=== PATIENT | male | born 1940 | race Caucasian/White ===

== ENCOUNTER 2021-09-16 10:35 | Outpatient (CLI) | payer MEDICARE, SELFPAY ==
--- NOTE | 2021-09-16 10:50 | ECG_ITS ---
Measurements Intervals [place] Rate: 73 P: -42 LA: 205 QRS: -10 QRSD: 109 T: 46 QT: 391 QTc: 432 Interpretive Statements SINUS RHYTHM WITH OCCASIONAL SUPRAVENTRICULAR PREMATURE COMPLEXES VOLTAGE CRITERIA FOR LVH [MEETS CRITERIA IN ONE OF: R(aVL), S(V1), R(V5), R(V5/V6)+S(V1)] NONSPECIFIC T-WAVE ABNORMALITY ABNORMAL ECG NO PREVIOUS ECG AVAILABLE FOR COMPARISON Electronically Signed On 09-16-2021 12:52:51 CDT by Kingston Kuo M.D.
[2021-09-16 11:22] LABS: INR 1.2; Prothrombin Time 14.3 Seconds (11.1-14.7)
[2021-09-16 11:23] LABS: Partial Thromboplastin Time 31.9 SECONDS (22.3-36.8)
== END 2021-09-16 10:36 | disposition home or self-care (01) ==
LOC: ANHSURGERY 10:46
PROVIDERS: PCP Internal Medicine; Visit Provider Urology
DX: N20.0 Calculus of kidney (principal); E78.00 Pure hypercholesterolemia, unspecified; Z01.818 Encounter for other preprocedural examination; R94.31 Abnormal electrocardiogram [ECG] [EKG]
CPT/HCPCS: 36415; 85610; 85730; 87086; 87088; 93005

== ENCOUNTER 2021-09-23 01:04 | Day surgery (SDC) | payer MEDICARE, SELFPAY ==
--- NOTE | 2021-09-12 15:31 | PC.NURSE ---
Report to the Outpatient Waiting Room, entrance under the green pavilion located off [facility], at time _0830 on date __09/23/21 . OR Time:1030 AM . - You and your visitor will be asked a series of questions to screen for COVID 19 for your protection. - A mask is required within the hospital. Preoperative COVID Testing Requirements: No COVID Test needed if: (proof is required; if not received patient will have Rapid Test prior to entry) - Patient has received COVID Vaccine at least 14 days prior to procedure date or - Patient has positive COVID test result within last 90 days of surgery date. COVID Test needed if above criteria is not met If not COVID vaccinated a COVID test must be conducted within 72 hours of surgery and patient is asked to isolate self from time of testing until procedure. You will go to the [facility] for your COVID testing. The [facility] is located at the corner of [address] [facility]. You will only be called if COVID results are positive and your surgeon may reschedule your elective surgery date. Patients may have clear liquids (water, carbonated beverages, clear teas, apple juice) until 3 hours prior to surgery with a maximum of 20 ounces. - No food from midnight until time of surgery - Infants may have breast milk until 4 hours before surgery, infant formula 6 hours prior to surgery. - Children will be allowed to drink immediately following surgery. If applicable, please bring a bottle or sippy cup to assist with drinking. Juice, water, soda, and popsicles are readily available. For infants on formula, please bring formula the day of surgery. Pacifiers are allowed. Take the following medications with a SIP of water the morning of surgery: _NONE Medications to discontinue per physician ___ELIQUIS 7 DAYS PRE OP PER DR YEE Date to take last dose_09/15/21 Please no make-up, nail sa[place] arabian, hairspray, perfume, deodorant, or body powder the day of surgery. No jewelry (including any body piercings) or valuables the day of surgery, leave them at home. Please take a shower or bath the night before, or the morning of, surgery with an antibacterial soap. Wear comfortable, loose fitting clothing. Children are encouraged to wear pajamas. - Jewelry must be removed prior to entering the operating room. Rings and piercings that are not removed may be cut off. - The hospital will not accept responsibility for valuables. - Please leave all valuables, including medications, at home the day of surgery. If you are going home after surgery, a licensed pile driver operator must drive you home. - NO public transportation without another adult. - We recommend that an adult stay with you for 24 hours following discharge. - We also recommend that you do not drive, make important decision, drink alcoholic beverages, or take any drugs that were not prescribed by your health care provider for at least 24 hours after your discharge time. For Pediatric surgeries, we recommend two adults accompany the child home (only one inside the building at this time). One visitor will be allowed to accompany the patient into the hospital. Patients visitor will be instructed to remain with patient at all times or leave the building. We will allow the visitor to come back to the postoperative area when patient is ready. Follow any additional instructions given to you from your surgeon. Telephone instructions given to __PATIENT and asked if any additional questions and then verbalized understanding. Patient advised to call surgeon office or pre surgery nurse liaison [phone] if any additional questions.
[2021-09-12 15:42] VITALS: BMI 28.7
--- NOTE | 2021-09-22 14:08 | P.PNAN_ITS ---
Anes - Eval Pre Procedure Procedure: Operation Date: 09/23/21 10:30 Proposed Procedures p Right Extracorporeal Shock Wave Lithotripsy, - José Cassidy MD s Cystoscopy, Right Retrograde Pyelogram, Right Stent Placement - José Cassidy MD Date/Time: 09/22/21 14:08 Pre Op Diagnosis: gross hematuria, right renal stones Patient Data Age: 80 Gender: M Height: 1.8 m Weight: 93.45 kg Allergies Allergy/AdvReac Type Severity Reaction Status Date / Time amlodipine Allergy Unknown Upset Verified 09/12/21 15:15 stomach Home Medications Medication Instructions Recorded Confirmed Type apixaban [Eliquis] 5 mg PO DAILY 09/12/21 09/12/21 History atorvastatin 20 mg PO DAILY 09/12/21 09/12/21 History pantoprazole 40 mg PO DAILY 09/12/21 09/12/21 History Patient hx anesthesia problems: none Family hx anesthesia problems: none Results Review: All pre-operative results and documents have been reviewed as part of the pre-operative evaluation. [facility] Past Medical History Medical History (Updated 09/22/21 @ 14:08 by Lev Dale DO) Atrial fibrillation GERD (gastroesophageal reflux disease) Hyperlipidemia TIA (transient ischemic attack) x3, 2018 Family History Family History (Updated 01/29/18 @ 13:48 by DOCTOR UNKNOWN) Mother Family history of lymphoma Social History Social History Smoking status: Never smoker Alcohol intake: current Spiritual care concerns: No Exam Day of Procedure 09/22/21 14:08
[2021-09-23] VITALS (13 sets, daily range): BP systolic 153–211; BP diastolic 59–97; PULSE 44–71; RESP 12–16; TEMP 36.2–36.5; O2SAT 95–100
--- NOTE | ~2021-09-23 | XR_ITS ---
EXAMINATION: XR abdomen/kub 1V INDICATION: Urolithiasis TECHNIQUE: Supine views of the abdomen were obtained on 2 radiographs. COMPARISON: None FINDINGS: A 1.6 cm calcification projects in the right upper quadrant, likely in the right kidney. No definite additional urolithiasis is identified. There are phleboliths of the pelvis. Calcifications are also noted in the prostate. The bowel gas pattern is normal. The visualized lung bases are clear. IMPRESSION: 1. Right upper quadrant calcification, likely within the right kidney. Reviewed, dictated and finalized at location A.
--- NOTE | 2021-09-23 06:31 | WPDHPUPDATE1 ---
History and Physical Update Update Date/Time: 09/23/21 06:31 History and Physical has been reviewed, including an updated exam of the patient. There are NO changes in the patient's condition. Risks, benefits, and alternatives have been discussed and questions answered. Patient agrees to proceed with procedure.
--- NOTE | 2021-09-23 09:07 | P.PNAN_ITS ---
Anes - Initial Pre Proc Eval Procedure: Operation Date: 09/23/21 10:30 Proposed Procedures p Right Extracorporeal Shock Wave Lithotripsy, - José Cassidy MD s Cystoscopy, Right Retrograde Pyelogram, Right Stent Placement - José Cassidy MD Date/Time: 09/23/21 09:07 Surgeon: José Cassidy MD Pre Op Diagnosis: gross hematuria, right renal stones Patient Data Age: 80 Gender: M Height: 1.8 m Weight: 93.45 kg Allergies Allergy/AdvReac Type Severity Reaction Status Date / Time amlodipine Allergy Unknown Upset Verified 09/12/21 15:15 stomach Home Medications Medication Instructions Recorded Confirmed Type apixaban [Eliquis] 5 mg PO DAILY 09/12/21 09/12/21 History atorvastatin 20 mg PO DAILY 09/12/21 09/12/21 History pantoprazole 40 mg PO DAILY 09/12/21 09/12/21 History Patient hx anesthesia problems: none Family hx anesthesia problems: none Results Review: All pre-operative results and documents have been reviewed as part of the pre-operative evaluation. [facility] Past Medical History Medical History (Updated 09/22/21 @ 14:08 by Lev Dale DO) Atrial fibrillation GERD (gastroesophageal reflux disease) Hyperlipidemia TIA (transient ischemic attack) x3, 2018 Family History Family History (Updated 01/29/18 @ 13:48 by DOCTOR UNKNOWN) Mother Family history of lymphoma Social History Social History Smoking status: Never smoker Alcohol intake: current Living arrangements: with family Spiritual care concerns: No Anes - Eval Final PreProcedure Day of Procedure 09/23/21 09:07 Patient weight: overweight Heart: regular rate and rhythm Lungs: clear to auscultation and normal air movement Airway: Mallampati scale class II Neurological: alert and oriented Last oral intake: >/= 8 hours ASA classification: III Emergent: no Anesthetic plan: proceed Anesthesia type and monitoring: general LMA and standard monitoring Results Review: All pre-operative results and documents have been reviewed as part of the pre-operative evaluation. Informed Consent: The patient's anesthetic plan and its attendant risks and benefits were discussed with the patient/family/POA. Questions were solicited and answers provided to the satisfaction of the patient/family/POA.
[2021-09-23] MEDS: LACTATED RINGERS 1,000 ML 30 ML IV CONT ×2 (09:15→11:50)
[2021-09-23] MEDS: ceFAZolin 2 GM/D5W 50 ML 2 GM/50 ML BAG IVPB (10:00)
--- NOTE | 2021-09-23 10:32 | P.OP_ITS ---
Procedure Note - Detailed Date of Procedure 09/23/21 Pre-op Diagnosis Gross hematuria, right renal stones Post-op Diagnosis Same Procedure Performed Cystoscopy, right ureteral stent placement, right ESWL Surgeon José Cassidy MD Anesthesia General Description of Procedure The patient was brought to the operative suite where he was placed in the supine position on the Dornier lithotripter table. Flexible cystoscopy was undertaken with a 16F flexible cystoscopy. There were no urethral strictures. The pr ostatic urethra estimated length was 3.0cm. 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 The bladder mucosa was normal and there was a single, orthotopic ureteral orifice bilaterally. A 0.035 glidewire was advanced into the right renal pelvis under fluoroscopy. A 4.8F J-J ureteral stent was positioned with the proximal coil in the renal pelvis and the distal coil in the bladder. The patient was then repositioned in the supine position with the focal point of the lithotriptor on a 17mm left renal calculus. A total of 2500 shocks were delivered at a power setting of 4. There appeared to be good fragmentation of the stone. The patient tolerated the procedure well and was taken to the recovery room in good condition. Estimated Blood Loss 0 Drains Yes Packing No Pathology Yes Complications No immediate complications Condition Stable Disposition PACU
[2021-09-23] MEDS: KETOROLAC 30 MG/ML VIAL (*BKC) 15 MG IV PUSH (10:33)
[2021-09-23] MEDS: hydrALAZINE HCL 20 MG/ML VIAL 10 MG IV PUSH ×2 (11:09→12:56)
[2021-09-23] MEDS: LABETALOL HCL INJ 100 MG/20 ML VIAL 10 MG IV PUSH (11:51)
== END 2021-09-23 13:43 | disposition home or self-care (01) ==
PROVIDERS: PCP Internal Medicine; Visit Provider Urology
PROC: (CPT 50590; principal; 2021-09-23 10:30)
PROC: (CPT 52352; 2021-09-23 10:30)
DX: N20.0 Calculus of kidney (principal); N13.5 Crossing vessel and stricture of ureter without hydronephrosis; N36.8 Other specified disorders of urethra; R31.0 Gross hematuria; K21.9 Gastro-esophageal reflux disease without esophagitis; R39.11 Hesitancy of micturition; I48.91 Unspecified atrial fibrillation; Z86.73 Personal history of transient ischemic attack (TIA), and cerebral infarction without residual deficits; Z79.01 Long term (current) use of anticoagulants; R35.1 Nocturia; N40.1 Benign prostatic hyperplasia with lower urinary tract symptoms; E78.00 Pure hypercholesterolemia, unspecified
CPT/HCPCS: 50590; 52332; 36415; 74018; 85610; 85730; 87086; 87088; 93005; A9270; C1769; C2617; J0360; J0690; J1100; J1885; J2405; J2704; J3010; J7030; J7120

== ENCOUNTER 2021-10-07 13:35 | Outpatient (CLI) | payer MEDICARE, SELFPAY ==
--- NOTE | ~2021-10-07 | XR_ITS ---
XR abdomen/kub 1V 10/07/2021 13:53 Indication: Left renal stone Procedure: KUB Comparison: 09/23/2021 Findings: There is a left internal ureteral stent in expected position. There are multiple proximal l eft ureteral stones. There are multiple right renal stones. Nonobstructive bowel gas pattern. Moderat e lumbar spondylosis. No acute osseous abnormality. There is a hiatal hernia. Impression: 1: Right renal and proximal ureteral stones. Right internal ureteral stent in expected position. Reviewed, dictated and finalized at location B. Impression: 1: Right renal and proximal ureteral stones. Right internal ureteral stent in e xpected position.
== END 2021-10-07 13:36 | disposition home or self-care (01) ==
LOC: ANHIMG 13:38
PROVIDERS: PCP Internal Medicine; Visit Provider Urology
DX: N20.2 Calculus of kidney with calculus of ureter (principal)
CPT/HCPCS: 74018

== ENCOUNTER 2021-10-24 11:14 | Outpatient (CLI) | payer MEDICARE, SELFPAY ==
--- NOTE | ~2021-10-24 | XR_ITS ---
EXAM: XR abdomen/kub 1V DATE: 10/24/2021 11:36 HISTORY: KIDNEY STONE ON RIGHT SIDE, FOLLOW UP . COMPARISON: 10/07/2021. FINDINGS: Right ureteral stent in good position. Clear lung bases. Normal bowel gas pattern. No orga nomegaly. 5 and 3 mm lower right pole calcifications are stable. Multiple previously identified 2 to 3 mm right ureteral stones have advanced downstream and several may have passed, only 2 are definitiv xiao identified in the present study. Degenerative changes in the lumbar spine and hips. IMPRESSION: Interval passage of several right ureteral stones. 2 ureteral stones remain in the mid ri ght ureter. Stable right nephrolithiasis. Reviewed, dictated and finalized at location K. IMPRESSION: Interval passage of several right ureteral stones. 2 ureteral stone s remain in the mid right ureter. Stable right nephrolithiasis.
== END 2021-10-24 11:15 | disposition home or self-care (01) ==
PROVIDERS: PCP Internal Medicine; Visit Provider Urology
DX: N20.2 Calculus of kidney with calculus of ureter (principal)
CPT/HCPCS: 74018